=== PATIENT | male | born 1965 ===

== ENCOUNTER → 2025-06-19 13:45 | Outpatient (REF) | payer OTHER, SELFPAY | LOC: RAD 13:45 | PROVIDERS: ATTENDING PHYSICIAN Student in an Organized Health Care Education/Training Program | DX: H53.8 Other visual disturbances (principal) | CPT/HCPCS: 93880 ==

== ENCOUNTER → 2025-06-24 08:49 | Outpatient (REF) | payer OTHER, SELFPAY | LOC: PAVMRI 08:49 | PROVIDERS: ATTENDING PHYSICIAN Student in an Organized Health Care Education/Training Program | DX: H53.8 Other visual disturbances (principal) | CPT/HCPCS: 70553; A9575 ==